=== PATIENT | male | born 1995 | race Hispanic/Latino ===

== ENCOUNTER 2017-03-19 20:37 | Emergency (ER) | payer OTHER ==
[2017-03-19 20:40] VITALS: BMI 23.6
[2017-03-19 20:43] VITALS: RESP 18; TEMP 97.9
--- NOTE | 2017-03-19 21:33 | ED PDOC ---
Arrival/HPI - General Chief Complaint: Abnormal Skin Integrity Time Seen by Provider: 03/19/17 20:51 Historian: Patient - History of Present Illness Narrative History of Present Illness (Text): 03/19/17 22:05 Patient complains of a painful mass of gradually increasing size of the sacral region x 2 days. Otherwise: (-) foreign body, (-) fever, (-) chills. (-) recent antibiotic use. PMD [place] Past Medical History - Provider Review Nursing Documentation Reviewed: Yes - Past History Past History: No Previous - Infectious Disease Hx of Infectious Diseases: None - Tetanus Immunization Tetanus Immunization: Up to Date - Past Medical History Past Medical History: No Previous - Cardiac Hx Cardiac Disorders: No - Pulmonary Hx Respiratory Disorders: No - Neurological Hx Neurological Disorder: No - HEENT Hx HEENT Disorder: No - Renal Hx Renal Disorder: No - Endocrine/Metabolic Hx Endocrine Disorders: No - Hematological/Oncological Hx Blood Disorders: No - Integumentary Hx Dermatological Disorder: No - Musculoskeletal/Rheumatological Hx Musculoskeletal Disorders: No - Gastrointestinal Hx Gastrointestinal Disorders: No - Genitourinary/Gynecological Hx Genitourinary Disorders: No - Psychiatric Hx Psychophysiologic Disorder: No Hx Substance Use: No - Past Surgical History Past Surgical History: No Previous - Surgical History Other/Comment: abcess drained - Anesthesia Hx Anesthesia: No - Suicidal Assessment Feels Threatened In Home Enviroment: No Family/Social History - Physician Review Nursing Documentation Reviewed: Yes Family/Social History: No Known Family HX Smoking Status: Light Smoker < 10 Cigarettes Daily Hx Alcohol Use: No Hx Substance Use: No Allergies/Home Meds Allergies/Adverse Reactions: Allergies No Known Allergies Allergy (Verified 03/19/17 20:40) Review of Systems - Review of Systems Constitutional: Normal. absent: Fatigue, Weight Change, Fevers Musculoskeletal: Normal. absent: Arthralgias, Back Pain, Neck Pain Skin: Normal, Abscess (prior abscess in the past ). absent: Rash, Pruritis, Skin Lesions Physical Exam - Physical Exam Narrative Physical Exam (Text): 03/19/17 22:00 GENERAL APPEARANCE: Patient is awake, alert, oriented x 3, in mild painful distress. Skin: warm and dry, +3 x 3 cm erythematous, tender, slightly fluctuant abscess to the sacral region with no surrounding cellulitis. Pulmonary: lungs clear, no rhonchi, no wheezing. Cardiac: regular rate and rhythm, no murmur, no gallop. Abdomen: soft nontender. Extremities: no deformity, full range of motion, no tenderness. Vital Signs Temp Pulse Resp BP Pulse Ox 03/19/17 20:43 97.9 F 85 18 114/68 97 Medical Decision Making ED Course and Treatment: 03/19/17 21:31 21 yo M with pilonidal abscess, needs I&D. Plan: - Naprosyn - Keflex / Bactrim - I&D Prior to procedure "time out" was called in order to confirm the correct patient and procedure. Through aseptic technique, local anesthesia was administered to abscess, incision and drainage of abscess was performed by PA which produced purulent material. Wound packing was inserted to the wound. Clean dressing was applied. Patient states he fully agrees with and understands discharge instructions. States that he agrees with the plan and disposition. Verbalized and repeated discharge instructions and plan. I have given the patient opportunity to ask any additional questions. Follow up with primary care physician in 1-2 days without fail. Return to the emergency room at any time for any new or worsening symptoms. - Medication Orders Current Medication Orders: Discontinued Medications Lidocaine HCl (Lidocaine 2% 20ml Vial) 5 ml IJ ONCE STA Stop: 03/19/17 21:36 Naproxen (Anaprox Ds) 550 mg PO ONCE STA Stop: 03/19/17 21:36 Last Admin: 03/19/17 21:45 Dose: 550 mg - PA / DRYING ROOM SUPERVISOR / Resident Statement MD/DO has reviewed & agrees with the documentation as recorded. Disposition/Present on Arrival - Present on Arrival Any Indicators Present on Arrival: No History of DVT/PE: No History of Uncontrolled Diabetes: No Urinary Catheter: No History of Decub. Ulcer: No History Surgical Site Infection Following: None - Disposition Have Diagnosis and Disposition been Completed?: Yes Diagnosis: Abscess Disposition: HOME/ ROUTINE Disposition Time: 21:32 Patient Plan: Discharge Patient Problems: Current Active Problems Problem Status Onset Abscess Acute Condition: STABLE Discharge Instructions (ExitCare): Abscess (ED) Print Language: ZAMBIAN Additional Instructions: Return to the ER after 2 days for wound check and packing removal. Prescriptions: Cephalexin [Keflex] 500 mg PO Q6 #28 capsule Sulfamethoxazole/Trimethoprim [Bactrim DS 800 mg-160 mg] 2 tab PO BID #28 tab Forms: WORK NOTE
[2017-03-19] MEDS ORDERED: Naproxen 550 mg Tab PO STA (21:35)
[2017-03-19] MEDS ORDERED: Lidocaine 2% Inj (20ml) IJ STA (21:35)
[2017-03-19] MEDS ORDERED: Tmp-Smz 800 mg-160 mg DS Tab PO STA (22:05)
[2017-03-19 22:19] VITALS: BP 116/72; PULSE 78; O2SAT 99
== END 2017-03-19 22:25 | disposition home or self-care (01) ==
LOC: ED 20:37
DX: L05.01 Pilonidal cyst with abscess (principal)

== ENCOUNTER 2017-03-21 22:39 | Emergency (ER) | payer OTHER ==
[2017-03-21 22:40] VITALS: BMI 23.6
[2017-03-21 23:15] VITALS: BP 118/74; PULSE 76; RESP 20; TEMP 98.4; O2SAT 98
== END 2017-03-22 00:15 | disposition left against medical advice (07) ==
LOC: ED 22:39
DX: Z02.89 Encounter for other administrative examinations (principal); Z48.01 Encounter for change or removal of surgical wound dressing